=== PATIENT | female | born 1960 ===

== ENCOUNTER → 2018-02-23 | Outpatient (CLI) | payer BC | LOC: SLR 11:00 | PROVIDERS: ATTEND Otolaryngology | DX: G47.30 Sleep apnea, unspecified (principal) | CPT/HCPCS: G0399 ==

== ENCOUNTER → 2018-03-19 | Outpatient (CLI) | payer BC | LOC: SLR 11:00 | PROVIDERS: ATTEND Otolaryngology | DX: G47.33 Obstructive sleep apnea (adult) (pediatric) (principal) | CPT/HCPCS: 95811 ==